=== PATIENT | female | born 1995 | race Two or more races ===

== ENCOUNTER → 2021-11-22 | Emergency (ER) | payer MEDICAID ==
[~2021-11-22] VITALS: Ht 172.7 cm; Wt 68.0 kg
[~2021-11-22] MED LIST: SODIUM CHLORIDE 0.9% 1,000 ML IV ONE
[2021-11-22 06:41] LABS: Salicylate < 1.7 mg/dL (2.8-20.0)
[2021-11-22 06:44] LABS: Potassium 3.6 mmol/L (3.5-5.1)
[2021-11-22 06:49] LABS: Albumin 3.9 g/dL (3.4-5.0); BUN/Creatinine Ratio 5.4; Calcium 8.1 mg/dL (8.5-10.1); Magnesium 2.6 mg/dL (1.6-2.6); Total Protein 7.5 g/dL (6.4-8.2)
[2021-11-22 06:51] LABS: Urine Bacteria NONE SEEN /hpf (None Seen); Urine Blood Negative /uL (Negative); Urine Specific Gravity 1.006 (1.001-1.035); Urine WBC 1 /hpf (0 - 5)
[2021-11-22 07:00] LABS: Acetaminophen < 2.0 ug/mL (10-30)
[2021-11-22 07:00] LABS: Amphetamine Screen, Urine NEGATIVE (NEGATIVE); Barbiturate Scree,Urine NEGATIVE (NEGATIVE); Benzodiazephine Screen, Urine NEGATIVE (NEGATIVE); Cannabinoid Screen, Urine NEGATIVE (NEGATIVE); Cocaine Screen, Urine NEGATIVE (NEGATIVE); Opiate Scree,Urine NEGATIVE (NEGATIVE); Phencyclidine Screen, Urine NEGATIVE (NEGATIVE)
[2021-11-22 07:01] LABS: Bilirubin, Total 0.2 mg/dL (0.2-1.0)
[2021-11-22 09:08] LABS: Basophils # (auto) 0 10 ^3/uL (0-0.2); Basophils % (auto) 0.5 % (0.0-2.0); Eosinophils # (auto) 0 10 ^3/uL (0-0.8); Eosinophils % (auto) 0.1 % (0.0-7.0); Hemoglobin 8.7 g/dL (12.2-16.2); Lymphocytes % (auto) 28.4 % (10.0-50.0); Mean Corpuscular Hemoglobin 19.7 pg (28.0-32.0); Mean Corpuscular Volume 65.8 fL (80.0-100.0); Monocytes # (auto) 0.2 10 ^3/uL (0-1.3); Monocytes % (auto) 5.4 % (0.0-12.0); Neutrophils # (auto) 2.4 10 ^3/uL (1.6-8.6); Neutrophils % (auto) 65.6 % (37.0-80.0); Nucleated Red Blood Cells % 0.2 %; Red Blood Cells 4.41 10^6/uL (4.0-5.20); Red Cell Distribution Width 18.8 % (11.8-14.3); White Blood Cell 3.6 10^3/uL (4.4-10.8)
[2021-11-22 19:40] VITALS: BP 121/65
== END | disposition left against medical advice (07) ==
LOC: EDBD 04:19 → ER 04:19
DX: R45.851 Suicidal ideations (principal); R41.82 Altered mental status, unspecified
CPT/HCPCS: 36415; 70450; 80053; 80307; 80320; 80329; 81001; 81025; 83735; 85025; 93005; 96360; 96361; 99285; J7030